=== PATIENT | male | born 1965 | race Caucasian/White ===

== ENCOUNTER → 2017-09-13 10:36 | Outpatient (CLI) | payer OTHER, SELFPAY ==
--- NOTE | 2017-09-13 12:18 | NEURO ---
NCS and/or EMG Patient Report Ordering Doctor: Jacob Palomino DATE OF SERVICE: 09/13/17 Anton Wilson is a 52-year-old male who presents for electrodiagnostic testing of the right upper limb. He sustained an injury at work resulting in her right anterior shoulder dislocation. He reports intermittent numbness and tingling in the right hand. Electrodiagnostic impression: The right median motor nerve demonstrates normal distal latency, amplitude and conduction velocity. Normal right ulnar motor response, including conduction across the elbow. Normal right median and ulnar F waves. Sensory responses are within normal limits. Needle EMG testing showed no evidence of denervation in any muscles tested in the right upper limb. Electrodiagnostic impression: This is a normal electrodiagnostic study of the right upper limb. There is no electrodiagnostic evidence for peripheral neuropathy, including carpal tunnel syndrome or axillary neuropathy. If there are any further questions, please do not hesitate to contact me.
== END ==
PROVIDERS: Visit Provider Orthopaedic Surgery
DX: S43.014D Anterior dislocation of right humerus, subsequent encounter (principal); X58.XXXD Exposure to other specified factors, subsequent encounter
CPT/HCPCS: 95886; 95909

== ENCOUNTER → 2017-10-17 16:18 | Outpatient (CLI) | payer OTHER, SELFPAY ==
--- NOTE | 2017-10-17 16:45 | RAD_ITS ---
STUDY: X-RAY CHEST REASON FOR EXAM: Male, 52 years old. Preoperative evaluation for shoulder surgery. Nicotine dependence. TECHNIQUE: 2 views COMPARISON: Prior chest radiograph from September 06, 2013. FINDINGS: Mild generalized hyperexpansion without consolidation, focal atelectasis or a substantial pleural effusion. There is no demonstrated pleural abnormality. Normal size heart. Normal mediastinum and roby. Normal visualized pulmonary arteries. There is atherosclerotic calcification of the aortic arch. Mild degenerative changes of the thoracic spine. Normal visualized ribs, clavicles, and shoulders. There is no demonstrated abnormality of the visualized soft tissue structures of the upper abdomen. RAD/Chest PA and Lateral IMPRESSION: Mild hyperexpansion consistent with a component of COPD without other acute findings or changes. Electronically Signed: Miriam Lomas MD at 23:49 EDT , Service support ,
[2017-10-17 17:22] LABS: Hematocrit 44.5 % (40-54); Hemoglobin 15.5 g/dl (13.0-16.5); Mean Corp Hgb Conc 34.8 g/gl (32-36); Mean Corpuscular Hgb 29.7 pg (27.0-32.0); Mean Corpuscular Volume 85.2 fL (80-94); Mean Platelet Vol. 8.9 fl (6.2-12.0); Platelet Count 337 K/mm3 (150-450); RBC Distribution Width CV 13.6 % (11.6-14.6); RBC Distribution Width SD 42.4 fl (35.1-43.9); Red Blood Count 5.22 M/mm3 (4.6-6.2); White Blood Count 6.1 K/mm3 (4.4-11.0)
[2017-10-17 17:23] LABS: Scan Indicated on CBC? Y/N NO
--- NOTE | 2017-10-17 17:43 | EKG12_ITS ---
Test Reason : PRE OP Blood Pressure : / mmHG Vent. Rate : 074 BPM Atrial Rate : 074 BPM P-R Int : 140 ms QRS Dur : 108 ms QT Int : 392 ms P-R-T Axes : 048 063 065 degrees QTc Int : 435 ms Normal sinus rhythm Incomplete right bundle branch block Borderline ECG Confirmed by TENISHA ESCOBEDO, ABDIEL ([id number]), editorial project manager CATERINA VALLADARES ([id number]) on 10/20/2017 12:50:03 PM Referred By: Govind Maxwell Confirmed By:ABDIEL STEVEN MD
[2017-10-17 17:57] LABS: Anion Gap 10 (5-15); BUN 8 mg/dL (7-18); Calcium,Total 8.7 mg/dL (8.5-10.1); Chloride 103 mmol/L (98-107); Creatinine, Serum 0.89 mg/dL (0.70-1.30); EST Glomerular Filtration Rate 94 mL/min (>60); Est Glom Filt Rate - Afr Amer 114 mL/min (>60); Glucose 101 mg/dL (74-106); Potassium 3.4 mmol/L (3.5-5.1); Sodium Level 137 mmol/L (136-145)
== END ==
PROVIDERS: Visit Provider Physician Assistant
DX: Z01.818 Encounter for other preprocedural examination (principal); Z01.810 Encounter for preprocedural cardiovascular examination; F17.200 Nicotine dependence, unspecified, uncomplicated
CPT/HCPCS: 36415; 71046; 80048; 85027; 93005